=== PATIENT | female | born 1995 | race Caucasian/White ===

== ENCOUNTER 2019-09-24 17:59 | Emergency (ER) | payer MEDICAID ==
[~2019-09-24] VITALS: Ht 165.1 cm; Wt 63.5 kg
[2019-09-24 18:22] VITALS: BP 110/69
[2019-09-24] MEDS ORDERED: NACL 0.9% 1,000 ML IV ONE (18:45)
[2019-09-24] MEDS ORDERED: KETOROLAC 30 MG/ML VIAL IVP ONE (18:45)
[2019-09-24] MEDS ORDERED: INTUBATION KIT MC ONE (21:09)
[2019-09-24 21:13] LABS: BARBITURATE, URINE NEGATIVE ng/ml (NEG <=200); BENZODIAZEPINE, URINE NEGATIVE ng/mL (NEG <=200); CANNABINOID, URINE NEGATIVE ng/mL (NEG <=50); COCAINE, URINE NEGATIVE ng/mL (NEG <=300); OPIATE, URINE NEGATIVE ng/mL (NEG <=2000); PHENCYCLIDINE SCREEN,URINE NEGATIVE ng/mL (NEG <=25)
[2019-09-24 22:07] VITALS: BP 130/75
== END 2019-09-24 22:07 | disposition home or self-care (01) ==
LOC: MED 17:59 → EDBD 17:59 → MED 22:07
DX: J06.9 Acute upper respiratory infection, unspecified (principal); R07.9 Chest pain, unspecified; F15.10 Other stimulant abuse, uncomplicated
CPT/HCPCS: 71045; 80305; 81002; 81025; 87804; 93005; 96374; 99285; J1885; J7030; Q0092; 99283

== ENCOUNTER 2020-08-18 03:29 | Emergency (ER) | payer MEDICAID ==
[~2020-08-18] VITALS: Ht 165.1 cm; Wt 61.2 kg
[2020-08-18 03:31] VITALS: BP 149/93
--- NOTE | 2020-08-18 03:45 | NUR ---
25 Y/ O FEMALE C/O LEFT SIDED PELVIC PAIN - PT IS WORRIED THAT SHE FORGOT TO PULL OUT TAMPON PRIOR TO SEX. PT STATES 5/10 PRESSURE PAIN. DENIES N/V. PMH: DENIES NKA
--- NOTE | 2020-08-18 03:47 | NUR ---
DR EDMONDSON AT BEDSIDE EXAMINING PT
--- NOTE | 2020-08-18 03:50 | NUR ---
Pelvic exam performed by DR EDMONDSON with DEAN HAMM at bedside for entire examination. Patient tolerated procedure WELL. Patient assisted to position of comfort after examination.
--- NOTE | 2020-08-18 03:58 | NUR ---
WET MOUNT COLLECTED AND SENT TO LAB
--- NOTE | 2020-08-18 04:00 | NUR ---
URINE COLLECTED AND SENT TO LAB
[2020-08-18 04:34] VITALS: BP 149/93
--- NOTE | 2020-08-18 04:34 | NUR ---
Patient discharged with v/s stable. Written and verbal after care instructions given and explained. Patient alert, oriented and verbalized understanding of instructions. Ambulatory with steady gait. All questions addressed prior to discharge. ID band removed. Patient advised to follow up with PMD. Rx of FLAGYL AND NAPROSYN given. Patient educated on indication of medication including possible reaction and side effects. Opportunity to ask questions provided and answered.
== END 2020-08-18 04:34 | disposition home or self-care (01) ==
LOC: MED 03:29
DX: N76.0 Acute vaginitis (principal); B96.89 Other specified bacterial agents as the cause of diseases classified elsewhere; Z97.5 Presence of (intrauterine) contraceptive device
CPT/HCPCS: 36415; 81002; 81025; 87210; 87491; 99284

== ENCOUNTER 2020-10-26 03:28 | Emergency (ER) | payer MEDICAID ==
[~2020-10-26] VITALS: Ht 165.1 cm; Wt 63.5 kg
[2020-10-26 03:36] VITALS: BP 127/76
[2020-10-26] MEDS ORDERED: NACL 0.9% 1,000 ML IV ONE (03:50)
[2020-10-26 04:50] LABS: BASOPHILS % (AUTO) 0.1 % (0.0-2.0); EOSINOPHILS # (AUTO) 0.2 K/uL (0-0.4); HEMATOCRIT 40.2 % (36-48); HEMOGLOBIN 13.5 g/dL (12.0-16.0); LYMPHOCYTES # (AUTO) 1.9 K/uL (2.5-16.5); LYMPHOCYTES % (AUTO) 12.3 % (20.5-51.1); MEAN CORPUSCULAR HEMOGLOBIN 30 pg (27-31); MEAN CORPUSCULAR HGB CONC 34 g/dL (33-37); MEAN CORPUSCULAR VOLUME 88.6 fL (80-94); MONOCYTES # (AUTO) 1.4 K/uL (0.8-1.0); NEUTROPHILS # (AUTO) 12.2 K/uL (1.8-7.7); NEUTROPHILS % (AUTO) 77.6 % (42.2-75.2); PLATELET COUNT (AUTO) 287 K/uL (140-450); RED BLOOD CELL COUNT(AUTO) 4.53 MIL/uL (4.20-5.40); RED CELL DISTRIBUTION WIDTH 13.5 % (11.6-13.7); WHITE BLOOD COUNT (AUTO) 15.7 K/uL (4.8-10.8)
[2020-10-26 04:59] LABS: APPEARANCE,URINE HAZY (CLEAR); BILIRUBIN,URINE NEGATIVE (NEGATIVE); BLOOD, URINE 1+ (NEGATIVE); COLOR,URINE YELLOW (YELLOW); LEUKOCYTE ESTERASE ,URINE 1+ (NEGATIVE); NITRITE, URINE POSITIVE (NEGATIVE); UGLUCOSE NEGATIVE (NEGATIVE)
[2020-10-26 05:05] LABS: ALBUMIN 3.2 g/dL (3.4-5.0); ANION GAP 9.8 (8-16); CARBON DIOXIDE 26.5 mmol/L (21-32); CREATININE 0.7 mg/dL (0.6-1.3); POTASSIUM 3.3 mmol/L (3.5-5.1); TOTAL BILIRUBIN 0.3 mg/dL (0.0-1.0)
[2020-10-26 05:16] LABS: LACTATE DEHYDROGENASE 179 U/L (81-234)
[2020-10-26 05:27] LABS: C-REACTIVE PROTEIN QUANT 5.7 mg/dL (0.0-0.9)
[2020-10-26 05:31] LABS: BARBITURATE, URINE NEGATIVE ng/ml (NEG <=200); BENZODIAZEPINE, URINE NEGATIVE ng/mL (NEG <=200); CANNABINOID, URINE POSITIVE ng/mL (NEG <=50); COCAINE, URINE NEGATIVE ng/mL (NEG <=300); OPIATE, URINE NEGATIVE ng/mL (NEG <=2000); PHENCYCLIDINE SCREEN,URINE POSITIVE ng/mL (NEG <=25)
[2020-10-26] MEDS ORDERED: KETOROLAC 30 MG/ML VIAL IVP ONE (05:45)
[2020-10-26] MEDS ORDERED: ONDANSETRON 4 MG/2 ML VIAL IVP ONE (05:45)
[2020-10-26 05:58] LABS: RBC,URINE 0-5 /HPF (0-5)
[2020-10-26] MEDS ORDERED: ONDA4TAB PO (06:33)
[2020-10-26] MEDS ORDERED: CEFU-18 PO (06:33)
[2020-10-26] MEDS ORDERED: LIDO100S PO (06:33)
[2020-10-26 07:06] VITALS: BP 108/76
== END 2020-10-26 07:05 | disposition home or self-care (01) ==
LOC: MED 03:28
DX: J02.9 Acute pharyngitis, unspecified (principal); N39.0 Urinary tract infection, site not specified; Z79.899 Other long term (current) drug therapy; Z20.822 Contact with and (suspected) exposure to COVID-19
CPT/HCPCS: 36415; 71045; 80053; 80305; 81001; 82550; 82728; 83605; 83615; 83880; 84702; 85025; 85384; 86140; 87040; 87086; 87426; 96361; 96365; 96375; 99284; J0696; J1885; J2405; J7030; J7060; U0003

== ENCOUNTER 2021-10-22 07:36 | Emergency (ER) | payer MEDICAID ==
[~2021-10-22] VITALS: Ht 165.1 cm; Wt 60.3 kg
[~2021-10-22 07:36] MED LIST: CEFU-18 PO; LIDO100S PO; ONDA4TAB PO
[2021-10-22 07:46] VITALS: BP 133/82
--- NOTE | 2021-10-22 07:56 | NUR ---
PT AMBULATED TO BED 7
--- NOTE | 2021-10-22 08:00 | NUR ---
26 Y/O FEMALE BIB SELF C/O INTERMITTENT R SHOULDER PAIN X 2 MOS. PT DENIES NUMBNESS OR TINGLING OF THE R SHOULDER. PT DENIES CHEST PAIN. PT DENIES TRAUMA. PT DENIES TAKING MEDICATION PRIOR TO ARRIVAL. BED IN LOWEST POSITION. BED RAIL X1. PMH:DENIES MEDS: DENIES NKA
[2021-10-22] MEDS ORDERED: KETOROLAC 60 MG/2 ML VIAL IM ONE (08:20)
[2021-10-22] MEDS ORDERED: ACET-8386 PO (08:47)
[2021-10-22] MEDS ORDERED: IBUP-2213 PO (08:47)
[2021-10-22 08:55] VITALS: BP 133/82
--- NOTE | 2021-10-22 08:56 | NUR ---
Patient discharged with v/s stable. Written and verbal after care instructions given and explained. Patient alert, oriented and verbalized understanding of instructions. Ambulatory with steady gait. All questions addressed prior to discharge. ID band removed. Patient advised to follow up with PMD. Rx of HYDROCODONE/ACETAMINOPHEN, IBUPROFEN given. Patient educated on indication of medication including possible reaction and side effects. Opportunity to ask questions provided and answered.
--- NOTE | 2021-10-22 08:56 | NUR ---
Renuka mayo in [facility] - 10/22/21 at 0856 by MOSES D
== END 2021-10-22 08:55 | disposition home or self-care (01) ==
LOC: MED 07:36
DX: M25.511 Pain in right shoulder (principal); R06.02 Shortness of breath; M54.2 Cervicalgia; Z79.899 Other long term (current) drug therapy
CPT/HCPCS: 81002; 81025; 96372; 99283; J1885

== ENCOUNTER 2021-11-17 07:30 | Emergency (ER) | payer MEDICAID ==
[~2021-11-17] VITALS: Ht 165.1 cm; Wt 63.0 kg
[~2021-11-17 07:30] MED LIST changes: +ACET-8386 PO; +IBUP-2213 PO
[2021-11-17 07:46] VITALS: BP 147/91
--- NOTE | 2021-11-17 07:51 | NUR ---
PT AMBULATED TO ER BED 9 WITH A STEADY GAIT.
--- NOTE | 2021-11-17 07:56 | NUR ---
26 Y/O FEMALE C/O PELVIC PAIN 02/17 [id number]. PT STATES "I FEEL LIKE THERE IS A TAMPON STUCK INSIDE ME, FEELS LIKE PRESSURE". DENIES FEVER/CHILLS. DENIES N/V/D. DENIES PMH NKA
--- NOTE | 2021-11-17 08:25 | NUR ---
DR. DECKER AT PT BEDSIDE FOR FURTHER EVALUATION.
--- NOTE | 2021-11-17 08:27 | NUR ---
Female [employer] Programmer accompanied female patient for PELVIC PAIN.
--- NOTE | 2021-11-17 08:30 | NUR ---
COLLECTED WET MOUNT, AND VAGINAL CULTURES WALKED TO LAB.
--- NOTE | 2021-11-17 08:36 | NUR ---
PT STATES SHE IS UNABLE TO PROVIDE UA SAMPLE. MADE AWARE.
--- NOTE | 2021-11-17 09:37 | NUR ---
PT STATES SHE IS UNABLE TO PROVIDE UA SAMPLE. MADE AWARE.
--- NOTE | 2021-11-17 09:52 | NUR ---
DR. DECKER AT PT BEDSIDE FOR FURTHER RE-EVALUATION.
[2021-11-17] MEDS ORDERED: METR-520 PO (09:57)
[2021-11-17 10:05] VITALS: BP 147/91
--- NOTE | 2021-11-17 10:06 | NUR ---
Patient discharged with v/s stable. Written and verbal after care instructions given FOR BACTERIAL VAGINOSIS and explained. Patient alert, oriented and verbalized understanding of instructions. Ambulatory with steady gait. All questions addressed prior to discharge. ID band removed. Patient advised to follow up with PMD. Rx of FLAGYL given. Patient educated on indication of medication including possible reaction and side effects. Opportunity to ask questions provided and answered.
== END 2021-11-17 10:05 | disposition home or self-care (01) ==
LOC: MED 07:30
DX: N76.0 Acute vaginitis (principal); Z79.899 Other long term (current) drug therapy; Z90.49 Acquired absence of other specified parts of digestive tract
CPT/HCPCS: 87070; 87210; 99283

== ENCOUNTER 2022-11-06 15:29 | Emergency (ER) | payer MEDICAID ==
[~2022-11-06] VITALS: Ht 165.1 cm; Wt 66.7 kg
[~2022-11-06 15:29] MED LIST changes: -ACET-8386 PO; +ACET-8905 PO; +METR-520 PO
[2022-11-06 15:34] VITALS: BP 147/102
--- NOTE | 2022-11-06 15:43 | NUR ---
pt to room 12, report to [employer] assistant manager steady gait
--- NOTE | 2022-11-06 15:47 | NUR ---
27 YO F OPHELIA PRESENTS TO THE ED C/O 9/10 PAIN TO ABDOMEN , AND NUMBNESS BELOW HER WAIST STARTING TWO HOURS AGO. NO PMH, NO ALLERGIES.
[2022-11-06] MEDS ORDERED: NACL 0.9% 1,000 ML IV ONE (16:05)
[2022-11-06 16:25] LABS: BILIRUBIN,URINE NEGATIVE (NEGATIVE); BLOOD, URINE NEGATIVE (NEGATIVE); COLOR,URINE YELLOW (YELLOW); LEUKOCYTE ESTERASE ,URINE 2+ (NEGATIVE); NITRITE, URINE NEGATIVE (NEGATIVE); UGLUCOSE NEGATIVE (NEGATIVE)
[2022-11-06 16:27] LABS: APPEARANCE,URINE CLOUDY (CLEAR)
--- NOTE | 2022-11-06 16:30 | NUR ---
US AT BEDSIDE
[2022-11-06 16:32] LABS: BASOPHILS % (AUTO) 0.2 % (0.0-2.0); EOSINOPHILS # (AUTO) 0.2 K/uL (0-0.4); EOSINOPHILS % (AUTO) 1.7 % (0.0-4.0); HEMATOCRIT 38.5 % (36-48); HEMOGLOBIN 13.2 g/dL (12.0-16.0); LYMPHOCYTES # (AUTO) 1.7 K/uL (2.5-16.5); LYMPHOCYTES % (AUTO) 17.8 % (20.5-51.1); MEAN CORPUSCULAR HEMOGLOBIN 30 pg (27-31); MEAN CORPUSCULAR HGB CONC 34 g/dL (33-37); MEAN CORPUSCULAR VOLUME 87.2 fL (80-94); MONOCYTES % (AUTO) 10.2 % (1.7-9.3); NEUTROPHILS # (AUTO) 6.8 K/uL (1.8-7.7); NEUTROPHILS % (AUTO) 70.1 % (42.2-75.2); PLATELET COUNT (AUTO) 310 K/uL (140-450); RED BLOOD CELL COUNT(AUTO) 4.42 MIL/uL (4.20-5.40); RED CELL DISTRIBUTION WIDTH 13.7 % (11.6-13.7); WHITE BLOOD COUNT (AUTO) 9.7 K/uL (4.8-10.8)
[2022-11-06 16:33] LABS: RBC,URINE 0 /HPF (0-5); WBC,URINE 0-5 /HPF (0-5)
[2022-11-06] MEDS ORDERED: ACETAMINOPHEN 325 MG TAB PO ONE (16:35)
--- NOTE | 2022-11-06 16:43 | NUR ---
koko lund for transvaginal us
--- NOTE | 2022-11-06 16:48 | NUR ---
PT STATING THAT SHE DOESNT WANT TO HAVE THE US ANYMORE, STATING TO REMOVE TRANSVAGINAL PROBE, US TECH REMOVED PROBE. PT STATING THAT THEY WANT TO LEAVE. DR CAPPS MADE AWARE AND SPEAKING TO PT REGARDING AMA
[2022-11-06 16:55] VITALS: BP 141/86
--- NOTE | 2022-11-06 16:55 | NUR ---
Patient does not wish to proceed with medical care recommended by DR CAPPS. Patient given information related to possible complications, up to and including , which could occur as a result of leaving hospital at this time. Patient verbalizes understanding of risks involved leaving against medical advice. Patient has signed AMA form.
[2022-11-06 16:57] LABS: ALBUMIN 3.3 g/dL (3.4-5.0); CREATININE 0.9 mg/dL (0.6-1.3); TOTAL BILIRUBIN 0.2 mg/dL (0.0-1.0)
[2022-11-06 17:08] LABS: BARBITURATE, URINE NEGATIVE ng/ml (NEG <=200); BENZODIAZEPINE, URINE NEGATIVE ng/mL (NEG <=200); CANNABINOID, URINE NEGATIVE ng/mL (NEG <=50); COCAINE, URINE NEGATIVE ng/mL (NEG <=300); OPIATE, URINE NEGATIVE ng/mL (NEG <=2000); PHENCYCLIDINE SCREEN,URINE NEGATIVE ng/mL (NEG <=25)
== END 2022-11-06 16:55 | disposition left against medical advice (07) ==
LOC: MED 15:29
DX: O26.891 Other specified pregnancy related conditions, first trimester (principal); R10.2 Pelvic and perineal pain; F15.10 Other stimulant abuse, uncomplicated; Z79.899 Other long term (current) drug therapy
CPT/HCPCS: 36415; 76705; 80053; 80305; 81001; 81025; 83690; 84702; 85025; 87086; 87491; 96360; 99284; Q0092; J7030

== ENCOUNTER 2023-09-20 23:22 | Emergency (ER) | payer MEDICAID ==
[~2023-09-20] VITALS: Ht 165.1 cm; Wt 61.2 kg
[2023-09-20 23:27] VITALS: BP 159/104; PULSE 81; RESP 16; TEMP 98.4; O2SAT 100
[2023-09-20 23:38] VITALS: BP 159/104; PULSE 81; RESP 16; TEMP 98.4
[2023-09-20 23:46] VITALS: O2SAT 98
[2023-09-20 23:55] VITALS: O2SAT 100
== END 2023-09-21 01:33 | disposition home or self-care (01) ==
LOC: MED 23:22
DX: H92.02 Otalgia, left ear (principal); Z79.899 Other long term (current) drug therapy
CPT/HCPCS: 99284